=== PATIENT | male | born 1970 | race Caucasian/White ===

== ENCOUNTER 2016-11-04 11:12 | Observation (INO) | payer OTHER ==
[2016-11-04] VITALS (8 sets, daily range): BP systolic 141–166; BP diastolic 85–95; PULSE 75–97; RESP 16–20; TEMP 96.7–98.6; O2SAT 94–100
[~2016-11-04 11:12] MED LIST: AMIT25 PO; CELE200C OR; HYDR50 PO; LORA10TA PO; LYRI100C OR; TRAM50TA PO; ZOLO100T OR
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
[2016-11-04] MEDS ORDERED: PROPOFOL 200 MG/20 ML AMP IV ONE (11:45)
[2016-11-04] MEDS ORDERED: ONDANSETRON HCL 4 MG/2 ML VIAL IV PUSH ONE (11:45)
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
[2016-11-04 12:16] LABS: AUTOMATED NEUTROPHIL # 6.6 TH/MM3 (1.8-7.7); BASOPHIL % 0.5 % (0.0-2.0); EOSINOPHIL # 0.1 TH/MM3 (0-0.4); EOSINOPHIL % 1.7 % (0.0-4.0); HEMATOCRIT 38.2 % (39.0-51.0); HEMO FLAGS DIFF FINAL; LYMPH % 14.1 % (9.0-44.0); LYMPHOCYTE # 1.2 TH/MM3 (1.0-4.8); MEAN CELL VOLUME 79.2 FL (80.0-100.0); MEAN CORPUSCULAR HEMOGLOBIN 25.8 PG (27.0-34.0); MEAN CORPUSCULAR HGB CONC 32.6 % (32.0-36.0); MONO % 6.5 % (0.0-8.0); NEUT % 77.2 % (16.0-70.0); PLATELET COUNT 281 TH/MM3 (150-450); RED BLOOD COUNT 4.82 MIL/MM3 (4.50-5.90); RED CELL DISTRIBUTION WIDTH 14.7 % (11.6-17.2); WHITE BLOOD COUNT 8.6 TH/MM3 (4.0-11.0)
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
[2016-11-04 12:44] LABS: ALT (GPT) 26 U/L (12-78); ANION GAP 10 MEQ/L (5-15); AST (GOT) 18 U/L (15-37); BICARBONATE 25.1 MEQ/L (21.0-32.0); BLOOD UREA NITROGEN 19 MG/DL (7-18); CHLORIDE 105 MEQ/L (98-107); GLOMERULAR FILTRATION RATE 88 ML/MIN (>89); POTASSIUM 4.1 MEQ/L (3.5-5.1); SODIUM (NA) 140 MEQ/L (136-145)
[2016-11-04 12:47] LABS: ALKALINE PHOSPHATASE 129 U/L (45-117); TOTAL BILIRUBIN ADULT 0.2 MG/DL (0.2-1.0)
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
[2016-11-04] MEDS ORDERED: OXYC30TA PO (14:08)
[2016-11-04] MEDS ORDERED: BENA40TA PO (14:08)
[2016-11-04] MEDS ORDERED: TIZA4TAB PO (14:08)
[2016-11-04] MEDS ORDERED: KLON2TAB PO (14:08)
[2016-11-04] MEDS ORDERED: VORT1TAB3 PO (14:08)
[2016-11-04] MEDS ORDERED: CELE200C PO (14:08)
[2016-11-04] MEDS ORDERED: DEXA.1%O RIGHT EAR (14:08)
[2016-11-04] MEDS ORDERED: LIPI20TA PO (14:08)
[2016-11-04] MEDS ORDERED: ESZO3TAB4 PO (14:08)
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
[2016-11-04] MEDS ORDERED: ONDANSETRON HCL 4 MG/2 ML VIAL IV PUSH PRN (15:00)
[2016-11-04] MEDS ORDERED: HYDROmorphone HCL PF 1 MG/ML VIAL IV PUSH PRN ×2 (15:00→19:00)
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
[2016-11-04] MEDS: SODIUM CHLOR 0.9% 1000 ML INJ 1,000 ML IV SCH (15:46)
[2016-11-04 17:36] LABS: BLOOD, URINE NEG (NEG); COMMENT (UR) CULT NOT INDICATED; CULTURE IF INDICATED CULT NOT INDICATED; GLUCOSE,URINE NEG (NEG); HYALINE CAST, URINE 7 /lpf (RARE); KETONE, URINE 10 mg/dL (NEG); MUCUS URINE FEW /lpf (OCC); NITRITE,URINE NEG (NEG); PH, URINE 5.5 (5.0-8.5); SQUAMOUS EPITHELIAL CELL URINE <1 /hpf (0-5); URINE COLOR LIGHT-YELLOW (YELLW/STRAW)
[2016-11-04] MEDS: ACETAMINOPHEN/HYDROcodone 325 MG/5 MG TAB PO PRN (20:18)
[2016-11-04 22:25] LABS: AMPHETAMINE, URINE NEG (NEG); BARBITURATES, URINE NEG (NEG); COCAINE, URINE POS (NEG)
[2016-11-05] VITALS: BP 153/88; PULSE 95; RESP 17; TEMP 97; O2SAT 96
[2016-11-05] MEDS: ACETAMINOPHEN/HYDROcodone 325 MG/5 MG TAB PO PRN ×3 (00:25→08:21)
[2016-11-05] MEDS: SODIUM CHLOR 0.9% 1000 ML INJ 1,000 ML IV SCH ×3 (01:00→20:07)
[2016-11-05 04:00] VITALS: BP 147/97; PULSE 88; RESP 18; TEMP 98.5; O2SAT 95
[2016-11-05 08:00] VITALS: BP 160/91; PULSE 91; RESP 18; TEMP 98.3; O2SAT 97
[2016-11-05] MEDS: ATORVASTATIN 20 MG TAB PO SCH (08:20)
[2016-11-05] MEDS: LISINOPRIL 20 MG TAB PO SCH (08:20)
[2016-11-05] MEDS ORDERED: ENALAPRILAT 1.25 MG/ML VIAL IV PUSH PRN (11:30)
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
--- NOTE | 2016-11-05 11:33 | HHI.DCPOC ---
Discharge Care Plan Diagnosis: (1) Fracture of distal radius and ulna Your Health Problems Are: Swelling Chronic Pain Goals to Promote Your Health * To prevent worsening of your condition and complications * To maintain your health at the optimal level Directions to Meet Your Goals Take your medications as prescribed Follow your dietary instruction Follow activity as directed Keep your appointments as scheduled Take your immunizations and boosters as scheduled If your symptoms worsen call your PCP, if no PCP go to Urgent Care Center or Emergency Room Smoking is Dangerous to Your Health. Avoid second hand smoke Call the 24-hour hour crisis hotline for domestic abuse at Kavita Bonilla MD Nov 05, 2016 11:33
[2016-11-05 12:00] VITALS: BP 159/93; PULSE 86; RESP 18; TEMP 97.5; O2SAT 95
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
[2016-11-05] MEDS: HYDROmorphone HCL PF 1 MG/ML VIAL IV PUSH PRN ×2 (15:37→20:08)
[2016-11-05 16:10] VITALS: BP 164/104; PULSE 91; RESP 16; TEMP 98.1; O2SAT 95
[2016-11-05] MEDS: clonazePAM 1 MG TAB PO SCH (17:25)
[2016-11-05 19:19] VITALS: BP 159/92; PULSE 98; RESP 16; TEMP 99.8; O2SAT 93
[2016-11-05] MEDS ORDERED: TEMAZEPAM 7.5 MG CAP PO ONE (21:45)
[2016-11-06 00:30] VITALS: BP 168/97; PULSE 97; RESP 16; TEMP 96.1; O2SAT 97
[2016-11-06] MEDS: HYDROmorphone HCL PF 1 MG/ML VIAL IV PUSH PRN ×2 (01:03→04:54)
[2016-11-06 05:00] VITALS: BP 168/99; PULSE 92; RESP 17; TEMP 98.3; O2SAT 93
[2016-11-06] MEDS: SODIUM CHLOR 0.9% 1000 ML INJ 1,000 ML IV SCH (07:00)
[2016-11-06 07:53] VITALS: BP 160/97; PULSE 88; RESP 18; TEMP 97.8; O2SAT 97
[2016-11-06] MEDS: ATORVASTATIN 20 MG TAB PO SCH (09:37)
[2016-11-06] MEDS: LISINOPRIL 20 MG TAB PO SCH (09:37)
[2016-11-06] MEDS: clonazePAM 1 MG TAB PO SCH (09:37)
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
[2016-11-06] MEDS ORDERED: OXYC15TA PO (11:16)
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
--- NOTE | 2016-11-06 11:19 | HHI.FF ---
Face to Face Verification Diagnosis: (1) Fracture of distal radius and ulna Physical Therapy Order: Evaluate and Treat Occupational Therapy Order: Evaluate and Treat I have seen patient Memo Ghotra on 11/06/16. My clinical findings support the need for the requested home health care services because: Ltd mobility - disease progression I certify that my clinical findings support that this patient is homebound because: Unsteady gait/balance Kavita Bonilla MD Nov 06, 2016 11:19
== END 2016-11-06 12:33 | disposition home or self-care (01) ==
LOC: NEPE 11:12 → INTOOBSV 15:00 → NEDA 15:00 → N06B 16:52
PROVIDERS: ADMIT Internal Medicine; ATTEND Internal Medicine
DX: S52.502A Unspecified fracture of the lower end of left radius, initial encounter for closed fracture (principal); S52.602A Unspecified fracture of lower end of left ulna, initial encounter for closed fracture; I10 Essential (primary) hypertension; E78.5 Hyperlipidemia, unspecified; G62.9 Polyneuropathy, unspecified; F32.9 Major depressive disorder, single episode, unspecified; F41.9 Anxiety disorder, unspecified; V43.52XA Car driver injured in collision with other type car in traffic accident, initial encounter; Z88.2 Allergy status to sulfonamides; Z88.8 Allergy status to other drugs, medicaments and biological substances; Z87.891 Personal history of nicotine dependence; Y92.488 Other paved roadways as the place of occurrence of the external cause
CPT/HCPCS: 25605; 70450; 72125; 73090; 73100; 73110; 80053; 80307; 81001; 85025; 96374; 97163; 97166; 99152; 99285; G0378; J1170; J2405; J7030

== ENCOUNTER 2016-11-17 17:31 | Emergency (ER) | payer OTHER ==
[~2016-11-17] VITALS: Ht 190.5 cm; Wt 125.0 kg
[~2016-11-17 17:31] MED LIST changes: -AMIT25 PO; +BENA40TA PO; -CELE200C OR; +DEXA.1%O RIGHT EAR; -HYDR50 PO; +KLON2TAB PO; +LIPI20TA PO; -LORA10TA PO; -LYRI100C OR; +OXYC15TA PO; +TIZA4TAB PO; -TRAM50TA PO; +VORT1TAB3 PO; -ZOLO100T OR
[2016-11-17 17:49] VITALS: BP 138/78; PULSE 98; RESP 20; O2SAT 98
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
[2016-11-17 18:32] LABS: AUTOMATED NEUTROPHIL # 5.2 TH/MM3 (1.8-7.7); BASOPHIL # 0.1 TH/MM3 (0-0.2); EOSINOPHIL # 0.1 TH/MM3 (0-0.4); EOSINOPHIL % 1.9 % (0.0-4.0); HEMATOCRIT 36.3 % (39.0-51.0); HEMO FLAGS DIFF FINAL; LYMPH % 17.2 % (9.0-44.0); LYMPHOCYTE # 1.2 TH/MM3 (1.0-4.8); MEAN CELL VOLUME 79.2 FL (80.0-100.0); MEAN CORPUSCULAR HEMOGLOBIN 25.4 PG (27.0-34.0); MEAN CORPUSCULAR HGB CONC 32.1 % (32.0-36.0); MONO % 7.2 % (0.0-8.0); NEUT % 72.7 % (16.0-70.0); PLATELET COUNT 272 TH/MM3 (150-450); RED BLOOD COUNT 4.59 MIL/MM3 (4.50-5.90); RED CELL DISTRIBUTION WIDTH 13.5 % (11.6-17.2); WHITE BLOOD COUNT 7.2 TH/MM3 (4.0-11.0)
[2016-11-17 18:48] LABS: AMPHETAMINE, URINE NEG (NEG); BARBITURATES, URINE NEG (NEG); COCAINE, URINE POS (NEG)
[2016-11-17 19:06] LABS: ALT (GPT) 35 U/L (12-78); ANION GAP 9 MEQ/L (5-15); AST (GOT) 16 U/L (15-37); BICARBONATE 26.4 MEQ/L (21.0-32.0); BLOOD UREA NITROGEN 17 MG/DL (7-18); CHLORIDE 104 MEQ/L (98-107); GLOMERULAR FILTRATION RATE 73 ML/MIN (>89); SODIUM (NA) 139 MEQ/L (136-145)
[2016-11-17 19:12] LABS: ALKALINE PHOSPHATASE 187 U/L (45-117); TOTAL BILIRUBIN ADULT 0.3 MG/DL (0.2-1.0)
[2016-11-17 21:43] VITALS: BP 136/84; PULSE 88; RESP 18
[2016-11-17] MEDS: IBUPROFEN 600 MG TAB PO SCH (21:45)
[2016-11-17 22:00] VITALS: BP 147/72; PULSE 85; RESP 18
[2016-11-18 01:52] VITALS: BP 149/65; PULSE 72; RESP 20
[2016-11-18] MEDS: IBUPROFEN 600 MG TAB PO SCH (06:00)
[2016-11-18 06:03] VITALS: BP 133/71; PULSE 78; RESP 18
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
== END 2016-11-18 11:18 | disposition home or self-care (01) ==
LOC: NEDAMB 17:31 → NEPJ 11-18 11:18
DX: F33.0 Major depressive disorder, recurrent, mild (principal); G89.4 Chronic pain syndrome
CPT/HCPCS: 80053; 80307; 85025; 99285